=== PATIENT | male | born 1995 | race Hispanic/Latino ===

== ENCOUNTER 2018-06-11 11:30 | Emergency (ER) | payer OTHER, SELFPAY ==
[2018-06-11 11:30] VITALS: BMI 24.5
[2018-06-11 13:51] VITALS: BP 110/70; PULSE 74; RESP 20; TEMP 98; O2SAT 98
--- NOTE | 2018-06-11 13:53 | ED PDOC ---
Lower Extremity Pain/Injury Chief Complaint (Provider): Left Knee Pain History Per: Patient History/Exam Limitations: no limitations Onset/Duration Of Symptoms: Days Current Symptoms Are (Timing): Still Present Additional History Per: Family (mother) Additional Complaint(s): 23 year old male presents to the ER for an evaluation of left knee pain onset for 3 days, which started while he was running. Patient is able to ambulate but has pain. He denies any direct trauma, fever, tingling or numbness. PMD: Unknown <Zuleyma Malone - Last Filed: 06/11/18 15:17> <Denis Vital - Last Filed: 06/12/18 16:46> Time Seen by Provider: 06/11/18 12:06 Chief Complaint (Nursing): Lower Extremity Problem/Injury Past Medical History Reviewed: Historical Data, Nursing Documentation, Vital Signs Vital Signs: Last Vital Signs Temp 98 F 06/11/18 13:47 Pulse 74 06/11/18 13:47 Resp 20 06/11/18 13:47 BP 110/70 06/11/18 13:47 Pulse Ox 98 06/11/18 13:47 - Medical History PMH: No Chronic Diseases - Family History Family History: States: Unknown Family Hx - Social History Current smoker - smoking cessation education provided: No Alcohol: None Drugs: Denies - Immunization History Hx Tetanus Toxoid Vaccination: No Hx Influenza Vaccination: No Hx Pneumococcal Vaccination: No <Zuleyma Malone - Last Filed: 06/11/18 15:17> Vital Signs: Last Vital Signs Temp 98 F 06/11/18 13:47 Pulse 74 06/11/18 13:47 Resp 20 06/11/18 13:47 BP 110/70 06/11/18 13:47 Pulse Ox 98 06/11/18 15:17 <Denis Vital - Last Filed: 06/12/18 16:46> - Home Medications Home Medications: Ambulatory Orders Medication Instructions Recorded Dicyclomine [Bentyl] 20 mg PO TID #30 tab 02/20/16 Famotidine [Pepcid] 20 mg PO BID #15 tab 02/20/16 RX: Ibuprofen [Motrin Tab] 600 mg PO Q8 #12 tab 06/11/18 - Allergies Allergies/Adverse Reactions: Allergies Allergy/AdvReac Type Severity Reaction Status Date / Time No Known Allergies Allergy Verified 02/20/16 11:06 Review of Systems ROS Statement: Except As Marked, All Systems Reviewed And Found Negative Constitutional: Negative for: Fever Cardiovascular: Negative for: Chest Pain Gastrointestinal: Negative for: Abdominal Pain Musculoskeletal: Positive for: Other (left knee pain) Neurological: Negative for: Weakness, Other (tingling) Psych: Negative for: Suicidal ideation (homicidal ideation) <Zuleyma Malone Dalton - Last Filed: 06/11/18 15:17> Physical Exam - Reviewed Nursing Documentation Reviewed: Yes Vital Signs Reviewed: Yes - Physical Exam Appears: Positive for: Well, Non-toxic, No Acute Distress Head Exam: Positive for: ATRAUMATIC, NORMAL INSPECTION, NORMOCEPHALIC Skin: Positive for: Normal Color, Warm, Dry. Negative for: Rash Eye Exam: Positive for: Normal appearance Pulses-Dorsalis Pedis (L): 2+ Pulses-Dorsalis Pedis (R): 2+ Extremity: Positive for: Normal ROM, Capillary Refill (less than 2 seconds ), Other. Negative for: Tenderness, Pedal Edema, Calf Tenderness, Deformity, Swelling Neurologic/Psych: Positive for: Alert, Oriented (x3). Negative for: Motor/Sensory Deficits <Zuleyma Malone Dalton - Last Filed: 06/11/18 15:17> - ECG O2 Sat by Pulse Oximetry: 98 (RA) Pulse Ox Interpretation: Normal <FaisalZuleyma Dalton - Last Filed: 06/11/18 15:17> Medical Decision Making Medical Decision Making: Time: 1215 --Knee 4 or More Views LT [RAD] --Patient was offered Motrin but patient declined XR of left knee: no fracture, no dislocation, as read by ROGELIO. Basil wrap applied on patient's left knee. Pt. ambualting with steady gait, no distress. RICE, motrin, and f/u with ortho. Scribe Attestation: Documented by Ismael Peralta, acting as a scribe for Zuleyma Malone PA-C. Provider Scribe Attestation: All medical record entries made by the Scribe were at my direction and personally dictated by me. I have reviewed the chart and agree that the record accurately reflects my personal performance of the history, physical exam, medical decision making, and the department course for this patient. I have also personally directed, reviewed, and agree with the discharge instructions and disposition. <Zuleyma Malone - Last Filed: 06/11/18 15:17> Disposition - Patient ED Disposition Is Patient to be Admitted: No - Disposition Disposition Time: 13:50 <Zuleyma Malone - Last Filed: 06/11/18 15:17> <Denis Vital - Last Filed: 06/12/18 16:46> - Clinical Impression Clinical Impression: Knee pain - Disposition Referrals: Sary Mauro MD [Staff Provider] - Condition: STABLE Prescriptions: RX: Ibuprofen [Motrin Tab] 600 mg PO Q8 #12 tab Instructions: Knee Pain (DC) Forms: [facility] [facility] ([place]ian), [facility] ED School/Work Excuse Print Language: FRISIAN Addendum Addendum: 06/12/18 16:46 Reviewed PA chart and agree. <Denis Vital - Last Filed: 06/12/18 16:46>
--- NOTE | 2018-06-11 15:58 | RAD ---
Date of service: 06/11/2018 PROCEDURE: Left Knee Radiographs. HISTORY: Pain. COMPARISON: None. FINDINGS: BONES: Normal. No fracture. JOINTS: Normal. No osteoarthritis. JOINT EFFUSION: None. OTHER FINDINGS: None. IMPRESSION: Normal radiographs of the left knee.
== END 2018-06-11 13:50 | disposition home or self-care (01) ==
LOC: H.ER 11:30
DX: M25.562 Pain in left knee (principal)

== ENCOUNTER 2019-01-19 11:47 | Emergency (ER) | payer OTHER, SELFPAY ==
[2019-01-19 11:47] VITALS: BMI 24.5
[2019-01-19 12:00] VITALS: BP 136/75; PULSE 67; RESP 16; TEMP 98.4; O2SAT 99
--- NOTE | 2019-01-19 12:59 | ED PDOC ---
HPI: Back Time Seen by Provider: 01/19/19 12:03 Chief Complaint (Nursing): Back Pain Chief Complaint (Provider): Back pain History Per: Patient History/Exam Limitations: no limitations Onset/Duration Of Symptoms: Days (more than 1x week) Current Symptoms Are (Timing): Still Present Severity: Moderate Exacerbating Factor(s): Other (sitting to standing position) Additional Complaint(s): 23 year old male with no past medical history presents to the ED for an evaluation of lower back pain that started more than 1x week ago status post fall. Patient states that he was running when he fell onto the right side of his body. Patient reports having pain to the lower back since then. Patient states that the pain worsens with movement (sitting to standing position). Patient reports taking ibuprofen 1x time right after the fall with no relief, and denies taking medications for pain since then. 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 Patient denies having a loss of control of his urinary or bowel habits or paresthesias. PMD: None provided. Past Medical History Reviewed: Historical Data, Nursing Documentation, Vital Signs Vital Signs: Last Vital Signs Temp 98.4 F 01/19/19 11:59 Pulse 67 01/19/19 11:59 Resp 16 01/19/19 11:59 BP 136/75 01/19/19 11:59 Pulse Ox 99 01/19/19 11:59 RENÉ Report Viewed: Yes Primary Care Provider: FAMILY PROVIDER,NO - Medical History PMH: No Chronic Diseases - Surgical History Surgical History: No Surg Hx - Family History Family History: States: No Known Family Hx - Social History Current smoker - smoking cessation education provided: No Alcohol: None Drugs: Denies - Immunization History Hx Tetanus Toxoid Vaccination: No Hx Influenza Vaccination: No Hx Pneumococcal Vaccination: No - Home Medications Home Medications: Ambulatory Orders Medication Instructions Recorded Dicyclomine [Bentyl] 20 mg PO TID #30 tab 02/20/16 Famotidine [Pepcid] 20 mg PO BID #15 tab 02/20/16 Ibuprofen [Motrin Tab] 600 mg PO Q8 #12 tab 06/11/18 Cyclobenzaprine [Cyclobenzaprine 10 mg PO Q8H PRN #15 tab 01/19/19 HCl] Ibuprofen [Motrin] 600 mg PO Q6H PRN #60 tab 01/19/19 - Allergies Allergies/Adverse Reactions: Allergies Allergy/AdvReac Type Severity Reaction Status Date / Time No Known Allergies Allergy Verified 02/20/16 11:06 Review of Systems ROS Statement: Except As Marked, All Systems Reviewed And Found Negative Gastrointestinal: Negative for: Other (loss of control of bowel habits) Genitourinary Male: Negative for: Incontinence Musculoskeletal: Positive for: Back Pain (lower back pain) Neurological: Negative for: Other (paresthesias) Physical Exam - Reviewed Nursing Documentation Reviewed: Yes Vital Signs Reviewed: Yes - Physical Exam Appears: Positive for: Well, Non-toxic, No Acute Distress Head Exam: Positive for: ATRAUMATIC, NORMOCEPHALIC Skin: Positive for: Normal Color, Warm, Dry Cardiovascular/Chest: Positive for: Regular Rate, Rhythm Respiratory: Positive for: Normal Breath Sounds Back: Positive for: Other ((+) pain to lower back with bilateral leg raises. (+) point tenderness to lumbar spine. (-) breaks in skin integrity, (-) obvious signs of injury) Extremity: Positive for: Normal ROM, Pedal Edema (2+ bilateral), Capillary Refill (lower extremity bilat: <2 secs cap refill ). Negative for: Tenderness, Calf Tenderness, Deformity, Swelling Neurological/Psych: Positive for: Awake, Alert, Normal Tone, Oriented (3x), Gait (ambulating with a steady gait at normal speed with no discomfort.) - ECG O2 Sat by Pulse Oximetry: 99 (RA) Pulse Ox Interpretation: Normal Medical Decision Making Medical Decision Makin:03 Initial impression: 23 year old male with lower back pain Initial plan: * flexeril 10 mg PO * toradol 60 mg IM * reevaluation 13:50 Upon reevaluation, patient states that the pain has not improved. Patient states that the pain radiates to his right leg, still has point tenderness, and thinks that the pain is to the bone. * CT l-spine w/o contrast ordered * XRay sacrum ordered * tylenol ordered * reevaluation 14:57 CT L-spine read and reviewed by radiologist FINDINGS: VERTEBRAE: Normal lumbar curvature. Vertebral body heights are normal throughout. No spondylolisthesis or destructive bony lesion identified. Posterior elements grossly appear intact. Visualized prevertebral paraspinal soft tissues appear diffusely unremarkable. DISCS/SPINAL CANAL/NEURAL FORAMINA: L1-2: Unremarkable. L2-3: Unremarkable. L3-4: Unremarkable. L4-5: Limited posterior disc bulge inverting the ventral thecal sac and cause s a mild central canal stenosis. No significant neural foraminal stenosis. L5-S1: Minimal posterior disc bulge without significant stenosis resulting. Neural foramina widely patent. No gross disc herniation throughout this exam. OTHER FINDINGS: Incidental note is made of an intrarenal calculus nonobstructive at the upper pole left kidney with a punctate calculus immediately anterior to it. IMPRESSION: 1. No fracture or spondylolisthesis. Normal curvature appreciated. 2. Limited posterior disc bulge causes mild central stenosis at L4-5. Minimal L5-S1 disc bulge without stenosis. 3. No definitive large disc herniation appreciable though MRI is more sensitive than CT. 4. Incidental intrarenal calculi are nonobstructive at the upper pole left kidney with the largest identified measuring 5.2 mm greatest dimension. 15:05 XRay sacrum read and reviewed by me: no acute fractures. ScribeAttestation: Documented byHenrietta Washington, acting as a scribe for Annika Miller [employer]. Provider ScribeAttestation: All medical record entries made by the Scribe were at my direction and personally dictated by me. I have reviewed the chart and agree that the record accurately reflects my personal performance of the history, physical exam, medical decision making, and the department course for this patient. I have also personally directed, reviewed, and agree with the discharge instructions and disposition. Disposition - Clinical Impression Clinical Impression: Lower back pain, Injury of lower back - Patient ED Disposition Is Patient to be Admitted: No Counseled Patient/Family Regarding: Diagnosis - Disposition Disposition: Routine/Home Disposition Time: 15:10 Condition: IMPROVED Prescriptions: Cyclobenzaprine [Cyclobenzaprine HCl] 10 mg PO Q8H PRN #15 tab PRN Reason: Pain, Moderate (4-7) Ibuprofen [Motrin] 600 mg PO Q6H PRN #60 tab PRN Reason: Pain, Moderate (4-7) Instructions: Low Back Pain in Adults, Back Exercises Forms: [facility] (Chinese), [facility] ED School/Work Excuse - POA Present On Arrival: None
--- NOTE | 2019-01-19 15:01 | CT ---
Date of service: 01/19/2019 PROCEDURE: CT Lumbar Spine without contrast HISTORY: fall, back pain COMPARISON: None available. TECHNIQUE: Axial computed tomography images were obtained of the lumbar spine without the use of intravenous contrast. Coronal and sagittal reformatted images were created and reviewed. Radiation dose: Total exam DLP = 299.46 mGy-cm. This CT exam was performed using one or more of the following dose reduction techniques: Automated exposure control, adjustment of the mA and/or kV according to patient size, and/or use of iterative reconstruction technique. FINDINGS: VERTEBRAE: Normal lumbar curvature. Vertebral body heights are normal throughout. No spondylolisthesis or destructive bony lesion identified. Posterior elements grossly appear intact. Visualized prevertebral paraspinal soft tissues appear diffusely unremarkable. DISCS/SPINAL CANAL/NEURAL FORAMINA: L1-2: Unremarkable. L2-3: Unremarkable. L3-4: Unremarkable. L4-5: Limited posterior disc bulge inverting the ventral thecal sac and causes a mild central canal stenosis. No significant neural foraminal stenosis. L5-S1: Minimal posterior disc bulge without significant stenosis resulting. Neural foramina widely patent. No gross disc herniation throughout this exam. OTHER FINDINGS: Incidental note is made of an intrarenal calculus nonobstructive at the upper pole left kidney with a punctate calculus immediately anterior to it. IMPRESSION: 1. No fracture or spondylolisthesis. Normal curvature appreciated. 2. Limited posterior disc bulge causes mild central stenosis at L4-5. Minimal L5-S1 disc bulge without stenosis. 3. No definitive large disc herniation appreciable though MRI is more sensitive than CT. 4. Incidental intrarenal calculi are nonobstructive at the upper pole left kidney with the largest identified measuring 5.2 mm greatest dimension.
--- NOTE | 2019-01-19 16:05 | RAD ---
Date of service: 01/19/2019 PROCEDURE: Radiographs of the Sacrum and Coccyx HISTORY: fall COMPARISON: None available. TECHNIQUE: Frontal and lateral views of the sacrum and coccyx. 4 views obtained. FINDINGS: BONES: Sacrum and coccyx unremarkable. No fracture or focal lesion. SACROILIAC JOINTS: Unremarkable. OTHER FINDINGS: None. IMPRESSION: Unremarkable radiographs of the sacrum and coccyx.
== END 2019-01-19 15:13 | disposition home or self-care (01) ==
LOC: H.ER 11:47
DX: S39.92XA Unspecified injury of lower back, initial encounter (principal); W19.XXXA Unspecified fall, initial encounter; Y92.89 Other specified places as the place of occurrence of the external cause
CPT/HCPCS: 72131; 72220; 96372; 99283; J1885